=== PATIENT | female | born 1955 | race Two or more races ===

== ENCOUNTER 2016-08-22 10:54 | Day surgery (SDC) | payer OTHER ==
[~2016-08-22] VITALS: Ht 165.1 cm; Wt 87.1 kg
[2016-08-22 11:50] VITALS: Ht 165.1 cm; Wt 87.1 kg
[2016-08-22 12:29] VITALS: BP 156/79; PULSE 85; RESP 18
[2016-08-22] MEDS ORDERED: MIDAZOLAM 1 MG/ML 2 ML INJ ONE ×2 (13:08)
[2016-08-22] MEDS ORDERED: FENTAnyl 50 MCG/ML VIAL ONE (13:08)
[2016-08-22] MEDS ORDERED: INSULIN SUBCUTANE (13:21)
[2016-08-22] MEDS ORDERED: DIABETES MED PO (13:21)
[2016-08-22 13:30] VITALS: BP 106/65; PULSE 96; RESP 19
--- NOTE | 2016-08-22 14:18 | GILP ---
DATE OF PROCEDURE: NAME OF PROCEDURES: 1. Esophagogastroduodenoscopy and biopsy. 2. Colonoscopy and biopsy. SURGEON: Kelton Woodward MD PREOPERATIVE DIAGNOSES: 1. Abdominal pain. 2. Chronic heartburn. 3. Screening colonoscopy. POSTOPERATIVE DIAGNOSES: 1. Hiatal hernia. 2. Gastroesophageal reflux disease. 3. Gastritis with erosions. 4. Gastric mucosal biopsies were taken for Helicobacter pylori test. 5. Colonoscopy all the way to the cecum. 6. Small right colon polyp was removed using the biopsy forceps. 7. Diverticulosis of the colon. 8. Internal hemorrhoids. INDICATION FOR THE PROCEDURE: Ms. Clarisse Sandy is a 61-year-old female patient who had upper abdomin al pain and chronic heartburn, not responding to therapy. She also needed screening colonoscopy. The procedures and possible complications are well explained to the patient, she understood and cons ented to the procedure. DESCRIPTION OF PROCEDURE: Under the influence of fentanyl and Versed, the gastroscope was carefully introduced into the esophagus and under direct vision, it was advanced to the stomach and through t he pylorus into the duodenal bulb and descending duodenum. FINDINGS: ESOPHAGUS: The patient had hiatal hernia and gastroesophageal reflux disease. STOMACH: She had gastritis with erosions. Gastric mucosal biopsies were taken for H. pylori test. DUODENUM: Normal. COLONOSCOPY: The colonoscope was carefully introduced in the rectum and under direct vision, it was advanced all the way to the cecum. FINDINGS: The patient had a small right colon polyp and it was removed using the biopsy forceps. T he patient was noted to have diverticulosis of the colon and internal hemorrhoids. She tolerated the procedure very well and there was no complication from the procedures. At the end of the procedures, she was awake with stable vital signs and she was discharged home to the care of her family. IMPRESSION: Please see postoperative diagnosis. PLAN: 1. Omeprazole 40 mg p.o. q.a.m. 2. Zantac 300 mg p.o. at bedtime. 3. Next screening colonoscopy in 10 years. Dictated By: KELTON LOONEY/NABIL Conf#: [id number] DID#: [id number]
== END 2016-08-22 16:01 | disposition home or self-care (01) ==
LOC: GIL 10:54
PROVIDERS: ATTEND Internal Medicine Gastroenterology
DX: Z12.11 Encounter for screening for malignant neoplasm of colon (principal); D12.3 Benign neoplasm of transverse colon; K44.9 Diaphragmatic hernia without obstruction or gangrene; K21.9 Gastro-esophageal reflux disease without esophagitis; K29.60 Other gastritis without bleeding; K57.90 Diverticulosis of intestine, part unspecified, without perforation or abscess without bleeding; K64.8 Other hemorrhoids; E11.9 Type 2 diabetes mellitus without complications
CPT/HCPCS: 43239; 45380; 82962; 87081; 88305; J2250; J3010; Z7610